=== PATIENT | male | born 1945 | race Caucasian/White ===

== ENCOUNTER 2016-04-11 09:38 | Inpatient (IN) ==
[2016-04-11] MEDS ORDERED: Vancomycin 1,750 MG in D5% in Water 500 ML IVPB ONE (09:55)
[2016-04-11] MEDS ORDERED: Lidocaine 1% 20 ML MDV ID ONE (09:55)
[2016-04-11] MEDS ORDERED: CeFAZolin Pre 2,000 MG/100 ML 2,000 MG/100 ML BAG IVPB ONE (09:55)
--- NOTE | 2016-04-11 09:57 | Anesthesia Evaluation PreOp ---
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: Other (carotid stenosis) Other Medical History: Diabetes Type II Anesthesia History: No Prior Anesthetic Complications, Past Anesthesia ( tympanoplasty) Alcohol Use: none Drug use: none Medications and Allergies Clopidogrel [Plavix] 75 mg PO DAILY #30 tablet 02/17/16 [Rx] Allergies No Known Allergies Allergy (Verified 02/17/16 17:27) - Meds/Allergy Pre-op Review Medications Reviewed: Yes Allergies Reviewed: Yes Beta Blockers on Current Med List: No Anesthesia Results - Labs Laboratory Tests 04/10/16 04/10/16 04/10/16 14:51 14:51 14:51 Hgb 16.1 Hct 49.6 Plt Count 266 PT 11.6 INR 1.1 APTT 32.7 Sodium 141 Potassium 3.9 Creatinine 0.80 - Imaging EKG: pending Anesthesia Exam O2 Sat Height 1.83 m Weight 108.862 kg Height: 1.83 Weight: 108 NPO (# of Hours): >8 - HEENT Pupil (Motor): Pupils equal, EOMI Mallampati: II Teeth: Edentulous Oral Opening: Greater than 3 - SOCIAL SCIENCE INSTRUCTOR LOC: Oriented SOCIAL SCIENCE INSTRUCTOR Motor: Normal RUE, Normal LUE, Normal RLE, Normal LLE, Normal Face SOCIAL SCIENCE INSTRUCTOR Sensory: Normal: RUE, LUE, RLE, LLE, Face - Cardiac Rhythm: Regular Murmur: None - Pulmonary Breath Sounds: bilateral Clear Respiratory Effort: Symmetrical Anesthesia Assess/Plan ASA Score: 3 (p/i/c/r/b/a to include periop risk of CVA or IN at 2-3% over next 72hrs. all q's answered) Modified [place] Scale for Level of Consciousness: Cooperative, oriented, and tranquil Anesthetic Plan: General Monitoring Plan: Standard Monitors Recovery Plan: PACU
[2016-04-11] MEDS ORDERED: Ringers Solution, Lactated 1,000 ML IVC SCH ×2 (10:00→15:15)
[2016-04-11] MEDS ORDERED: Albuterol 2.5 MG/3 ML NEBULIZER ONE (10:01)
[2016-04-11] MEDS ORDERED: Albuterol 2.5 MG/3 ML NEBULIZER IH ONE (10:04)
[2016-04-11] MEDS ORDERED: Heparin 1,000 UNITS/500 mL NS 500 ML ONE (10:17)
--- NOTE | 2016-04-11 10:58 | History & Physical Report ---
Date of Encounter: 04/11/16 Time of Encounter: 10:55 24 Hour HP Update - Instructions Instructions: If the History and Physical is less than 30 days old and was completed prior to A.M. admission and or procedure and has NOT been updated on calendar day of procedure please complete this update prior to performing procedure. - Update Patient reports changes in Medical Condition: No Changes in assessment/condition: No Changes in Medication: No Preop tests/diagnostics Reviewed: Yes Surgery Remains Indicated: Yes Consent for Planned Operative Procedure(s) Verified: Yes - Pre-Operative Checklist Preoperative Checklist Indicated: No Prophylactic Antibiotic Ordered: Yes (Surgical prophylaxis with risk of MRSA) Home Medications Include Beta Santino: No Beta Santino Taken Today (Day of Surgery): No Beta Santino Taken Yesterday (Day Prior to Surgery): No Is VTE Prophylaxis Indicated?: Yes
[2016-04-11] MEDS ORDERED: Vancomycin 1,000 MG VIAL ONE (11:07)
[2016-04-11] MEDS ORDERED: Protamine Sulfate 50 MG/5 ML VIAL IVP ONE (11:07)
[2016-04-11] MEDS ORDERED: Bupivacaine-MPF 0.25% 10 ML VIAL ONE (11:07)
[2016-04-11] MEDS ORDERED: Heparin 1,000 UNITS/500 mL NS 1,000 ML ONE (11:08)
[2016-04-11] MEDS ORDERED: *HR* Rocuronium Bromide 50 MG/5 ML VIAL ONE (11:09)
[2016-04-11] MEDS ORDERED: Lidocaine -MPF 2% 2 ML VIAL ONE (11:09)
[2016-04-11] MEDS ORDERED: Ondansetron 4 MG/2 ML VIAL ONE (11:09)
[2016-04-11] MEDS ORDERED: Dexamethasone 4 MG/ML VIAL ONE (11:09)
[2016-04-11] MEDS ORDERED: *HR* Phenylephrine 10 MG/ML VIAL ONE (11:09)
[2016-04-11] MEDS ORDERED: *HR* Propofol 200 MG/20 ML VIAL IVP ONE (11:10)
[2016-04-11] MEDS ORDERED: *HR* Heparin 5,000 UNIT/ML VIAL ONE (11:10)
[2016-04-11] MEDS ORDERED: *HR* FentaNYL (PF) 100 MCG/2 ML VIAL ONE (11:18)
[2016-04-11] MEDS ORDERED: *HR* Midazolam HCl 2 MG/2 ML VIAL ONE (11:18)
[2016-04-11] MEDS ORDERED: *HR* Remifentanil 2 MG VIAL IVP ONE ×2 (11:18→13:36)
[2016-04-11] MEDS ORDERED: *HR* HYDROmorphone 2 MG/ML SYRINGE ONE (14:19)
[2016-04-11] MEDS ORDERED: *HR* Succinylcholine 200 MG/10 ML VIAL IVP ONE (14:47)
[2016-04-11] MEDS ORDERED: *HR* Metoprolol 5 MG/5 ML VIAL IVP ONE (14:53)
--- NOTE | 2016-04-11 14:55 | Operative Note ---
Date of procedure: 04/11/16 Pre-op diagnosis: 80-99% Right internal carotid artery stenosis Post-op diagnosis: same Procedure: Right carotid endarterectomy with hemashield patch angioplasty. Complications: None Anesthesia: SUZIA Surgeon: Mian Torrez Estimated blood loss (cc): 100 Specimen: Right carotid plaque Condition: stable Disposition: PACU Procedure in Detail: Indications: The patient is a 70 year old male who underwent a CT angiogram of the neck and was found to have an 80-99% proximal right internal carotid artery stenosis. A right carotid endarterectomy was recommended to reduce his risk of stroke. Procedure: The patient was identified in the preoperative area. The risks, benefits, and alternatives of the procedure were discussed and all questions were answered. The patient was then taken to the operating room and placed in supine position on the operating table. After induction of general endotracheal anesthesia, the patient was cleaned and draped in normal sterile fashion. A longitudinal incision was made anterior to the right sternocleidomastoid muscle. Hemostasis was obtained via electrocautery. Through a process of blunt , sharp, and electrocautery dissection, the platysma was traversed. The jugular vein was identified. The facial vein circumferentially dissection. The facial vein was then clamped, divided, tied off with a 2-0 silk suture ligature. The jugular vein was retracted, exposing the carotid bifurcation. The patient received 2000 units of heparin intravenously at this time. Proximal dissection of the common and external carotid arteries were performed circumferentially. Dissection of the internal carotid was performed circumferentially. Vessels loops were passed around the internal and external carotid and an umbilical tape was passed from the common carotid artery. The patient received additional 3000 units of heparin intravenously. Additional heparin was given throughout the case to maintain adequate anticoagulation. After waiting adequate time for it to circulate, the vessels were occluded and a longitudinal arteriotomy was made into the common carotid artery extending into the internal carotid beyond the plaque. Vigorous pulsatile retrograde flow was noted from the internal carotid artery upon release of the loop. Given the high backpressure, no shunt was placed. A dental Mystic was used to perform a standard endarterectomy. Proximal and distal endpoints were inspected. No elevated flaps were noted. Additional heparin was given throughout the procedure to maintain adequate anticoagulation. A Hemashield patch was cut to fit the defect and sutured in place with running 6 -0 Prolene. Prior to completing the closure, each vessel was flushed and then reoccluded. Heparinized saline was infused into the lumen. The patch was completed. Flow was restored in the external carotid artery, followed the common carotid artery, lastly the internal carotid artery was opened. A low resistance arterialized signal was present within the internal carotid artery beyond the patch. Thrombin and Gelfoam were used to aid in hemostasis. Meticulous hemostasis was obtained throughout the wound with electrocautery. Platelet rich and platelet poor plasma were infused into the wounds. The sternocleidomastoid was reapproximated with interrupted 3-0 Vicryl. Platelet rich and platelet poor plasma were infused into the wound. A TLS drain was brought through a separate stab incision and sutured in place with 0 silk suture. The platysma was reapproximated with running 3-0 Vicryl. Local anesthetic was infused in the skin. A 3-0 Monocryl was used to reapproximate the skin. Sterile dressing was applied. The patient was extubated, taken to the recovery room in stable condition.
[2016-04-11] MEDS ORDERED: Ondansetron 4 MG/2 ML VIAL IVP ONE (15:15)
[2016-04-11] MEDS ORDERED: *HR* HYDROmorphone (PF) 1 MG/ML SYRINGE IVP PRN (15:15)
--- NOTE | 2016-04-11 15:37 | Anesthesia Evaluation Post Op ---
Date of Encounter: 04/11/16 Time of Encounter: 15:34 - Vital Signs Vital Signs: Vital Signs/O2 Sat/Glucose, Most Current Temp Pulse Resp BP Pulse Ox 04/11/16 15:14 73 20 139/73 96 04/11/16 15:04 98.7 F 77 20 171/85 90 L - Lungs Lungs: Clear Ascult./Percussion - Airway Airway: Non-obstructed - Cardiovascular Regular Rate, Baseline Rhythm - Mental Status Mental Status: Alert & Oriented, Answers Appropriately - Pain Pain Scale: 0 Pain Scale used: Numeric (1 - 10) - Nausea Vomiting Nausea Vomiting: Not Present - Hydration Hydration: Ice chips, Cooney catheter - Discharge PostOp Status: Transfer Patient to floor
[2016-04-11] MEDS ORDERED: Naloxone 0.4 MG/ML INJ IVP PRN (16:44)
[2016-04-11] MEDS ORDERED: *HR* Dextrose 50 % in Water (Syg) 50 ML SYRINGE IVP PRN (16:44)
[2016-04-11] MEDS ORDERED: Dextrose Gel 15 GM PO PRN ×2 (16:44)
[2016-04-11] MEDS ORDERED: Ondansetron 4 MG/2 ML VIAL IVP PRN (16:44)
[2016-04-11] MEDS ORDERED: *HR* OxyCODONE Immed Rel 5 MG TABLET PO PRN (16:44)
[2016-04-11] MEDS ORDERED: D5% in Water 1,000 ML IV PRN (16:44)
[2016-04-11] MEDS ORDERED: *HR* Morphine 2 MG/ML SYRINGE IVP PRN (16:44)
[2016-04-11] MEDS ORDERED: Acetaminophen 325 MG TABLET PO PRN (16:44)
[2016-04-11] MEDS ORDERED: *HR* Labetalol 20 MG/4 ML SYRINGE IVP PRN (16:44)
[2016-04-11] MEDS: Insulin LISPRO 300 UNITS/3 ML VIAL SQ SCH (17:38)
[2016-04-11] MEDS: *HR* Metoprolol 5 MG/5 ML VIAL IVP SCH (17:49)
[2016-04-11] MEDS: ceFAZolin 2,000 MG in D5% in Water 100 ML IVPB SCH (17:49)
[2016-04-11] MEDS ORDERED: Lisinopril 20 MG TABLET PO SCH (18:00)
[2016-04-11] MEDS ORDERED: hydroCHLOROthiazide 25 MG TABLET PO SCH (18:00)
[2016-04-11] MEDS ORDERED: Magnesium Oxide 400 MG TABLET PO SCH (18:00)
[2016-04-11] MEDS ORDERED: Aspirin Enteric Coated 81 MG Tablet PO SCH (18:00)
--- NOTE | 2016-04-11 20:36 | Electrocardiograph Report ---
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
[2016-04-11] MEDS ORDERED: Insulin LISPRO 300 UNITS/3 ML VIAL SQ SCH (21:00)
[2016-04-11] MEDS ORDERED: Vancomycin 1,500 MG in D5% in Water 250 ML IVPB ONE (22:30)
[2016-04-12] MEDS: *HR* Metoprolol 5 MG/5 ML VIAL IVP SCH ×3 (00:48→12:13)
[2016-04-12] MEDS: ceFAZolin 2,000 MG in D5% in Water 100 ML IVPB SCH (01:20)
[2016-04-12] MEDS ORDERED: *HR* Heparin 5,000 UNIT/ML VIAL SQ SCH ×2 (06:00)
--- NOTE | 2016-04-12 07:35 | Anesthesia Procedures ---
Date of Encounter: 04/11/16 Time of Encounter: 12:00 Procedures: Anesthesia - Arterial Line Consent obtained: written consent Time out performed: Yes Sedation: Versed (mg): 2 Sedation: Fentanyl (mcg): 100 Supplemental Oxygen via Nasal Cannula (L/min): 2 Size (Gauge): 20 Length (inches): 1 3/4 Technique Used: sterile prep, guide wire technique, direct puncture technique Post-Procedure: line taped into place Patient tolerated procedure: well Complications: none Site: Radial R
--- NOTE | 2016-04-12 07:41 | Discharge Summary ---
Date of Encounter: 04/12/16 Time of Encounter: 07:45 - Discharge Diagnosis (1) Carotid stenosis, bilateral Priority: Primary Status: Chronic Comments: The patient is postoperative day #1 after right carotid endarterectomy. His wound is healing. He has no hematoma. He will be discharged today. 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 He qualifies for home 02. This will be provided to him. He was reminded to quit smoking and urged to not smoke while on oxygen supplementation due to fire risk. Qualifiers: COPD type: emphysema Emphysema type: panlobular Qualified Code(s): J43.1 - Panlobular emphysema (3) Type 2 diabetes mellitus with other circulatory complications Priority: Secondary Status: Chronic (4) Hypertension, essential Priority: Secondary Status: Chronic Comments: The patient was counseled regarding smoking cessation. (5) Mixed hyperlipidemia Priority: Secondary Status: Chronic (6) Hematuria Priority: Secondary Status: Chronic Comments: The patient has been experieincing hematuria. I spoke with Dr. Lott. He advised that the tuttle catheter should be left in place. The patient will follow -up with Dr. Lott in the office next week. He will receive teaching regarding tuttle catheter management prior to discharge. (7) Tobacco abuse Priority: Secondary Status: Chronic Comments: The patient was counseled regarding smoking cessation. He states that he is officially quitting. - Discharge Medications Prescriptions: OxyCODONE Immed Rel [Roxicodone 5 MG] 1 tab PO Q4H PRN #30 tablet PRN Reason: POSTOPERATIVE PAIN Oxybutynin [Ditropan] 5 mg PO TID #30 tablet Home Medications: Amlodipine Besylate 10 mg PO QPM 04/11/16 [History] Aspirin Enteric Coated [Aspirin EC] 81 mg PO QPM 04/11/16 [History] Clopidogrel [Plavix] 75 mg PO QPM 04/11/16 [History] GlipiZIDE [Glipizide] 20 mg PO BID 04/11/16 [History] Hydrochlorothiazide 25 mg PO QPM 04/11/16 [History] Lisinopril [Zestril] 40 mg PO QPM 04/11/16 [History] Magnesium Oxide [Magnesium] 400 mg PO QPM 04/11/16 [History] Metformin HCl [Glucophage] 1,000 mg PO BID 04/11/16 [History] Simvastatin [Zocor] 10 mg PO HS 04/11/16 [History] OxyCODONE Immed Rel [Roxicodone 5 MG] 1 tab PO Q4H PRN #30 tablet 04/12/16 [Rx] Oxybutynin [Ditropan] 5 mg PO TID #30 tablet 04/12/16 [Rx] Albuterol Sulfate [Albuterol Inhaler] 1 puff IH Q4HR PRN #1 pack 04/15/16 [Rx] GuaiFENesin ER [Mucinex] 600 mg PO BID #20 tbbp.12hr 04/15/16 [Rx] Ipratropium/Albuterol Neb [Duoneb] 3 ml IH [id number] #30 inhsol 04/15/16 [Rx] Levofloxacin [Levaquin] 750 mg PO DAILY #5 tablet 04/15/16 [Rx] Allergies/Adverse Reactions: Allergies No Known Allergies Allergy (Verified 04/11/16 10:34) Procedures/tests Complete & Pending: Procedures Performed prior 72 hours Category Date Time Status ECG 12 lead ECG [ECG] Stat Y 04/11/16 09:58 Completed Date of admission: 04/11/16 15:24 Primary care physician: PCP VT Procedure(s) Performed: Right carotid endarterectomy Discharging clinician: Mian Torrez Anticipated date of discharge: 04/12/16 - Patient Status Disposition: Home, Self-Care Condition: Good Functional capacity at discharge: independent ambulation Overall status at discharge: patient is progressing back to baseline - Discharge Instructions Instructions: Oxycodone, Rapid Release (By mouth), Diabetes Mellitus Type 2 in Adults (DC), Peripheral Vascular Disorders (DC), Chronic Obstructive Pulmonary Disease (DC), Chronic Hypertension (DC) Follow Up With: Mian Torrez MD [Partnered Physician] - 05/22/16 9:40 am Hamzah Lott MD [Partnered Physician] - 04/18/16 1:00 pm VT,PCP [Primary Care Provider] - 04/25/16 9:15 am Additional Instructions: May shower 04/13/16. Wash wound gently and pat to dry. Apply dry gauze bandage as needed. Call [phone] with questions or concerns. - Diet and Activity Activity: increase activity as tolerated Diet: diabetic diet - Hospital Course Hospital course: Mr. Greene is a 70 year old male with a history of carotid stenosis. He was admitted on 04/11/16. He underwent a right carotid ednarterectomy. He tolerated the procedure well. He was noted to have hematuria and urology recommended that he be discharged with his tuttle catheter. He was instructed regarding catheter management. Due to bladder spasms, he was started on Oxybuynin. He was discharged on postoperative day #1 in stable condition without complication. - Time Spent with Patient Total time spent providing and/or coordinating discharge services: Exam Vital Signs, Last 4 Hours Temp Pulse Resp BP Pulse Ox 04/12/16 07:15 98.6 F 64 14 138/70 90 L 04/12/16 04:42 69 04/12/16 03:56 98.6 F 69 18 131/62 93 L General: Present: Conversant, No Apparent Distress HEENT: Present: Trachea midline, Pupils equal Neck: Present: Other (incision clean, dry and intact without erythema or drainage, no hematoma) Cardiac: Present: Reg Rate and Rhythm Lungs: Present: Normal Breath Sounds, No Wheeze, Rales, Rhonchi Neuro: Present: Alert and responsive, No focal deficits noted Abdomen: Present: Non-tender Vascular: Present: Normal capillary refill. Absent: Cyanosis, Edema Skin: Present: No rashes noted on visualized skin - VTE Documentation of Mechanical Device: Graduated compression elastic hosiery
[2016-04-12] MEDS: *HR* HYDROcodone/Acet 5/325 mg TABLET PO PRN ×2 (08:03→15:48)
[2016-04-12] MEDS: Insulin LISPRO 300 UNITS/3 ML VIAL SQ SCH ×2 (08:08→12:14)
[2016-04-12] MEDS ORDERED: *HR* GlipiZIDE 5 MG TABLET PO SCH (09:00)
[2016-04-12] MEDS ORDERED: *HR* Metformin 500 MG TABLET PO SCH (09:00)
[2016-04-12 15:27] VITALS: BP 190/81
[2016-04-12] MEDS ORDERED: amLODIPine 5 MG TABLET PO SCH (18:00)
== END 2016-04-12 16:25 | disposition home or self-care (01) | DRG 39 ==
LOC: SAMDAY 09:38 → 2NNU 15:24
PROVIDERS: ADMIT Surgery; ATTEND Surgery

== ENCOUNTER 2016-04-13 14:23 | Inpatient (IN) ==
[2016-04-13] MEDS ORDERED: Ondansetron 4 MG/2 ML VIAL IVP PRN (16:41)
[2016-04-13] MEDS ORDERED: Acetaminophen 325 MG TABLET PO PRN (16:41)
[2016-04-13] MEDS ORDERED: Naloxone 0.4 MG/ML INJ IVP PRN (16:41)
[2016-04-13] MEDS ORDERED: *HR* OxyCODONE Immed Rel 5 MG TABLET PO PRN ×2 (16:49→18:45)
[2016-04-13] MEDS ORDERED: *HR* Dextrose 50 % in Water (Syg) 50 ML SYRINGE IVP PRN (17:53)
[2016-04-13] MEDS ORDERED: D5% in Water 1,000 ML IV PRN (17:53)
[2016-04-13] MEDS ORDERED: Dextrose Gel 15 GM PO PRN ×2 (17:53)
[2016-04-13] MEDS: Aspirin Enteric Coated 81 MG Tablet PO SCH (17:56)
[2016-04-13] MEDS: Magnesium Oxide 400 MG TABLET PO SCH (17:57)
[2016-04-13] MEDS: amLODIPine 5 MG TABLET PO SCH (17:57)
[2016-04-13] MEDS ORDERED: hydroCHLOROthiazide 25 MG TABLET PO SCH (18:00)
--- NOTE | 2016-04-13 18:02 | Internal Med History&Physical ---
Date of Encounter: 04/13/16 Time of Encounter: 17:00 Assessment and Plan (1) Acute encephalopathy Current visit: Yes Status: Acute secondary to use of Percocet, Xanax and hypoxemia. Holding pain medications and sedatives. Treating underlying hypoxemia. (2) Medication overdose Current visit: Yes Status: Acute patient tool xanax and oxycodone due to pain from tuttle catheter and developed drowsiness and imbalance. holding pain meds. tylenol prn. Qualifiers: Encounter type: initial encounter Injury intent: accidental or unintentional Qualified Code(s): T50.901A - Poisoning by unspecified drugs, medicaments and biological substances, accidental (unintentional), initial encounter (3) Acute respiratory failure with hypoxemia Current visit: Yes Status: Acute Patient was started on 2 L of oxygen at home yesterday. history of COPD and emphysema. His describes episodes of shortness of breath at exertion and hypoxia with SaO2 at 86% for many years. Also, he has been dozing off more frequently in the past few months. Positive flulike symptoms one week ago. Patient denies any cough, hemoptysis, or chest pain. Requiring 8 L of oxygen via high flow nasal cannula. could be secondary to COPD exacerbation. Given concern for possible pneumonia, I will start IV Levaquin, and IV vancomycin. Blood cultures taken at [facility] ED. check CXR, ABG, EKG, echocardiogram. Albuterol Atrovent nebulizations every 4 hours mucinex. (4) UTI (urinary tract infection) Current visit: Yes Status: Acute had a tuttle catheter placed 2 days ago. This was removed at [facility] ED. Has had already 1100 mL of clear urine without a tuttle catheter. UA was positive for infection. Pending urine culture from [facility] daily. Patient received IV ceftriaxone. repeat UA. Qualifiers: Urinary tract infection type: acute cystitis Hematuria presence: with hematuria Qualified Code(s): N30.01 - Acute cystitis with hematuria (5) COPD (chronic obstructive pulmonary disease) Current visit: No Status: Chronic plan as above Qualifiers: COPD type: emphysema Emphysema type: panlobular Qualified Code(s): J43.1 - Panlobular emphysema (6) Carotid stenosis, bilateral Current visit: No Status: Chronic s/p bilateral CEA. (7) Type 2 diabetes mellitus with other circulatory complications Current visit: No Status: Chronic ISS. diabetic diet. IV fluids (8) Tobacco abuse Current visit: No Status: Chronic (9) Hypertension, essential Current visit: No Status: Chronic resume amlodipine. iv hydralazine prn. (10) Hematuria Current visit: No Status: Chronic resolved. repeat UA. Internal Medicine - H&P: HPI Chief complaint: changes in mental status this morning. Admitted From: Home Plans for Post Hospital Care: Home History of present illness: Mr. Greene is a 70 year old male with past medical history of diabetes, hypertension, COPD, CAD and recent right carotid endarterectomy on 04/11/16 at our hospital. His postoperative course was complicated by hematuria and he was sent home with a Tuttle catheter. This morning, patient woke up at 7:30, was complaining of discomfort from his Tuttle catheter so he took 5 mg of oxycodone. His discomfort persisted and a family member gave him 2mg of Xanax (patient has no prescription for this). At 7:50 AM family noted the patient was acting differently, he was mumbling his words and was in bilateral arms. At the [facility] ED, patient required 6L of oxygen via NC. Urinalysis was positive for nitrates, hemoglobin, uric acid esterase and bacteria. Urine culture is pending. WBC 11. Hemoglobin 15.5. Platelets 226. Sodium 136. Potassium 4.4. chloride 96. BUN/creatinine 27. Glucose 218. Creatinine 0.88. LFTs were unremarkable except albumin 3.4. PT 13.7 INR 1.23 PTT 32.1 sedimentation rate 26. Troponin 0.22. CT of the head showed moderate chronic paranasal sinusitis. Mild to moderate arteriovascular calcification. Blood cultures are taken. He received 1 g of IV ceftriaxone and 500 mL of IV normal saline for up suspected UTI. He was transferred to our hospital for further management. On admission, patient is requiring 8 L of oxygen via high flow nasal cannula. He is alert and oriented 3. Has had already 1100 mL of clear urine without a tuttle catheter. Yesterday, patient was started on 2 L of oxygen via nasal cannula for the first time. However, his describes episodes of shortness of breath at exertion and hypoxia with SaO2 at 86% for many years. Also, he has been dozing off more frequently in the past few months. Positive flulike symptoms one week ago. Patient denies any cough, hemoptysis, or chest pain. Past Med Surg Social Fam HX - Past Medical History Medical history: CHF, COPD, diabetes, hyperlipidemia, hypertension, other Psychiatric history: anxiety, depression - Past Surgical History Surgical History: vascular surgery - Social History Smoking Status: Current every day smoker Packs per day: 1 1/2 Smokeless Tobacco Status: No Alcohol use: occasionally Drug use: prescription drug abuse - Family History Father History Unknown: Yes Internal Medicine - H&P: Meds Amlodipine Besylate 10 mg PO QPM 04/11/16 [History] Aspirin Enteric Coated [Aspirin EC] 81 mg PO QPM 04/11/16 [History] Clopidogrel [Plavix] 75 mg PO QPM 04/11/16 [History] GlipiZIDE [Glipizide] 20 mg PO BID 04/11/16 [History] Hydrochlorothiazide 25 mg PO QPM 04/11/16 [History] Lisinopril [Zestril] 40 mg PO QPM 04/11/16 [History] Magnesium Oxide [Magnesium] 400 mg PO QPM 04/11/16 [History] Metformin HCl [Glucophage] 1,000 mg PO BID 04/11/16 [History] Simvastatin [Zocor] 10 mg PO HS 04/11/16 [History] OxyCODONE Immed Rel [Roxicodone 5 MG] 1 tab PO Q4H PRN #30 tablet 04/12/16 [Rx] Oxybutynin [Ditropan] 5 mg PO TID #30 tablet 04/12/16 [Rx] Allergies No Known Allergies Allergy (Verified 04/11/16 10:34) All Systems PM: A 10-system review of systems was performed and is negative for pertinent findings except as documented above in the HPI. - Constitutional Vitals: Temp Pulse Resp BP Pulse Ox 98.6 F 85 18 176/79 90 L 04/13/16 16:41 04/13/16 16:41 04/13/16 16:41 04/13/16 16:41 04/13/16 16:41 General appearance: Present: cooperative, mild distress (respiratory distres), A &O X 3, pleasant, answers questions appropriately - Eye Eye exam: Present: PERRL, sclera anicteric - ENT ENT exam: Present: mucous membranes dry - Neck Additional comments: surgical incision without any signs of infection - Respiratory Respiratory exam: Present: decreased breath sounds (at left lung base. mild wheezes at base) - Cardiovascular Cardiovascular exam: Present: RRR - GI/Abdominal GI/Abdominal exam: Present: normal bowel sounds, soft. Absent: distended, tenderness - Extremities Exam Extremities exam: Present: pedal edema (ankle) - Back Exam Back exam: Absent: CVA tenderness (L), CVA tenderness (R) - Neurological Exam Neurological exam: Present: alert, oriented X3. Absent: facial droop, speech deficit
--- NOTE | 2016-04-13 18:16 | Event Note ---
Date of Encounter: 04/13/16 Time of Encounter: 16:30 Patient seen and examined and discussed with the hospitalist. The patient underwent a right carottid endarterectomy on 04/11/16. He has hematuria and due to this, his tuttle was left in place. He was advised to follow-up with Dr. Lott next week. However, the patient reports that he was unable to tolerate his tuttle catheter. His states that he was also not drinking fluids because he didn't want to get a full bladder. The patient apparently also took sedatives and narcotics and became somnolent. He was taken to the ER and insisted that his catheter be removed. It was removed and he was then transferred to [facility]. Exam reveals that his incision is healing well. He has no hematoma. He has no neurologic deficits. He is able to urinate without the tuttle catheter in place. His urine is clear. Recommend resuming his diet, oral versus intravenous hydration.
[2016-04-13] MEDS ORDERED: Vancomycin 0 MG in D5% in Water 250 ML IVPB STA (18:34)
[2016-04-13] MEDS: Ipratropium/Albuterol Neb 3 ML IH SCH ×3 (18:42→23:00)
[2016-04-13] MEDS: Budesonide Neb 0.5 MG/2 ML IH SCH ×2 (18:42→19:56)
[2016-04-13] MEDS ORDERED: 0.9 % Sodium Chloride 1,000 ML IVC SCH (18:45)
[2016-04-13] MEDS ORDERED: Albuterol 2.5 MG/3 ML NEBULIZER IH PRN (18:45)
[2016-04-13 18:58] LABS: ABG Base Excess 8.4 mEq/L (-2.0 to 3.0); ABG HCO3 36.7 mEQ/L (21-27); ABG Oxygen Saturation 91 % (95-98); ABG PCO2 65 mmHg (35-45); ABG PH 7.36 pH Units (7.32-7.45); ABG PO2 64 mmHg (85-104); ABG TCO2 38.7 mEq/L (20-26); Blood Gas Liter Flow 8 L/MIN
[2016-04-13] MEDS ORDERED: Levofloxacin 500 MG/100 ML 500 MG/100 ML BAG IVPB SCH (19:00)
[2016-04-13 19:47] LABS: Magnesium 1.6 mg/dL (1.6-2.6); Phosphorous 2.4 mg/dL (2.3-4.7)
[2016-04-13] MEDS: Insulin LISPRO 300 UNITS/3 ML VIAL SQ SCH (19:50)
[2016-04-13 20:02] LABS: Bilirubin,Urine Negative (Negative); Blood,Urine Large (Negative); Clarity,Urine Clear (Clear); Color,Urine Yellow (Yellow); Glucose,Urine (UA) 100 mg/dL (Normal); Ketones,Urine Negative (Negative); Leukocyte Esterase,Urine Negative (Negative); Nitrite,Urine Negative (Negative); Protein,Urine 30 mg/dL (Neg-Trace); Specific Gravity,Urine >= 1.030 (1.010-1.025); Urobilinogen,Urine Normal (Normal)
[2016-04-13 20:04] LABS: Bacteria,Urine None Seen per hpf (None-Few); Hyaline Casts,Urine None Seen per lpf (None-Few); RBC,Urine 0-3 per hpf (0-3); Squamous Epithelial Cell,Urine Moderate per lpf (None-Few); WBC,Urine 0-3 per hpf (0-3)
[2016-04-13] MEDS: Vancomycin 1,500 MG in D5% in Water 250 ML IVPB SCH (21:44)
[2016-04-14] MEDS: Ipratropium/Albuterol Neb 3 ML IH SCH ×6 (03:31→23:44)
[2016-04-14 04:21] LABS: BUN/Creatinine Ratio 22 (6-26); Blood Urea Nitrogen 17 mg/dL (8-26); Calcium 8.9 mg/dL (8.6-10.8); Carbon Dioxide 33 mEq/L (19-29); Chloride 93 mEq/L (98-109); Glucose 153 mg/dL (70-99); Magnesium 1.3 mg/dL (1.6-2.6); Osmolality,Calculated 285 (280-300); Phosphorous 2.3 mg/dL (2.3-4.7); Potassium 4.1 mEq/L (3.5-4.5); Sodium 135 mEq/L (136-145); eGFR For African Americans > 60 (> 60); eGFR For Non-African Americans > 60 (> 60)
[2016-04-14 04:32] LABS: Basophils % 0.4 %; Eosinophils # 0.1 K/mcL (0.0-0.6); Eosinophils % 0.8 %; Hematocrit 44.7 % (37.5-50.1); Hemoglobin 14.7 g/dL (12.9-16.9); Immature Granulocytes % 0.5 % (0-4); Lymphocytes # 1.1 K/mcL (0.6-4.6); Mean Corpuscular HGB Conc 32.9 g/dL (31.6-35.5); Mean Corpuscular Hemoglobin 28.9 pg (28.0-33.3); Mean Corpuscular Volume 87.8 fL (83.0-100.0); Mean Platelet Volume 9.8 fL (9.4-12.4); Monocytes # 1.2 K/mcL (0.0-1.3); Monocytes % 11.3 %; Neutrophils # 8.1 K/mcL (1.6-8.9); Platelet Count 225 K/mcL (140-400); Red Blood Count 5.09 M/mcL (4.19-5.50); Red Cell Distribution Width 13.9 % (11.5-14.5)
[2016-04-14] MEDS: Budesonide Neb 0.5 MG/2 ML IH SCH ×2 (07:23→20:40)
[2016-04-14] MEDS: Insulin LISPRO 300 UNITS/3 ML VIAL SQ SCH ×4 (07:59→19:20)
[2016-04-14] MEDS: Vancomycin 1,500 MG in D5% in Water 250 ML IVPB SCH (08:03)
--- NOTE | 2016-04-14 16:49 | Internal Med Progress Note ---
Date of Encounter: 04/14/16 Time of Encounter: 09:00 - Assessment and plan (1) COPD exacerbation Current Visit: Yes Status: Acute Assessment and plan: We will continue antibiotics, steroids, and bronchodilator treatment. Supportive treatment with oxygen or BiPAP. (2) DVT prophylaxis Current Visit: Yes Status: Acute Assessment and plan: Heparin subcutaneously (3) Acute respiratory failure with hypoxemia Current Visit: Yes Status: Acute Assessment and plan: Considered due to COPD exacerbation, will treat underlying disease, oxygen or BiPAP supportive treatment (4) Carotid stenosis, bilateral Current Visit: No Status: Chronic Assessment and plan: Had the right side carotid endarterectomy. On Aspirin and Plavix (5) Hypertension, essential Current Visit: No Status: Chronic Assessment and plan: Keep home medication (6) Type 2 diabetes mellitus with other circulatory complications Current Visit: No Status: Chronic Assessment and plan: Sliding-scale coverage (7) Elevated troponin Current Visit: Yes Status: Acute Assessment and plan: Mild elevation of troponin on COPD exacerbation setting, considered demand ischemia, repeated troponin trended down. Patient has no chest pain and there is no significant EKG change - Time Spent With Patient 25 - 35 minutes - Subjective Interval history: Patient is a 70-year-old male admitted for shortness of breath. His past medical history is significant for COPD, CAD, and a recent right carotid endarterectomy. Pt was seen and examined. He is awake alert, oriented 3. In mild respiratory distress. Talking in full sentences. Vitals are stable. Oxygen saturation 95 % on 6 L nasal cannula oxygen. Considering patient has COPD, we will decrease his nasal cannula oxygen level to 3.5 L/m, if oxygen saturation cannot maintain , will place patient on BiPAP. Continue antibiotic, steroid, and bronchodilator treatment. - Constitutional Vitals: Temp Pulse Resp BP Pulse Ox 98.9 F 78 18 166/72 94 L 04/14/16 16:18 04/14/16 16:18 04/14/16 16:18 04/14/16 16:18 04/14/16 16:18 General appearance: Present: cooperative, mild distress (respiratory distres), A &O X 3, pleasant, answers questions appropriately - Head Head exam: Present: atraumatic, normocephalic - Eye Eye exam: Present: PERRL, conjuntiva pink, sclera anicteric Pupils: Present: PERRL - Neck Neck exam general surgery: Present: supple, trachea midline. Absent: lymphadenopathy - Respiratory Respiratory exam: Present: CTAB, wheezes (Scattered wheezes bilaterally). Absent: accessory muscle use, rales, rhonchi - Cardiovascular Cardiovascular exam: Present: RRR, +S1, +S2. Absent: diastolic murmur, gallop, rubs, systolic murmur - GI/Abdominal GI/Abdominal exam: Present: normal bowel sounds, soft, no peritoneal signs. Absent: distended, tenderness - Extremities Exam Extremities exam: Present: warm, radial pulses palpable and symetrical. Absent : calf tenderness, cyanotic, pedal edema - Neurological Exam Neurological exam: Present: CN II-XII intact, oriented X3, no focal deficits. Absent: pronater drift, facial droop, speech deficit - Skin Skin exam: Present: dry, intact Internal Medicine: Result - Labs CBC & Chem 7: 04/14/16 03:45 04/14/16 03:45 Labs: Short CBC 04/14/16 Range/Units 03:45 WBC 10.6 (4.3-11.1) K/mcL Hgb 14.7 (12.9-16.9) g/dL Hct 44.7 (37.5-50.1) % Plt Count 225 (140-400) K/mcL Neutrophils # 8.1 (1.6-8.9) K/mcL BMP 04/14/16 03:45 Sodium 135 L Potassium 4.1 Chloride 93 L Carbon Dioxide 33 H BUN 17 Creatinine 0.76 Glucose 153 H Calcium 8.9 Cardiac Enzymes 04/13/16 04/14/16 Range/Units 19:28 03:45 Troponin I 0.12 H* 0.11 H* (0-0.03) ng/mL Urine 04/13/16 Range/Units 19:30 Urine Color Yellow (Yellow) Urine Clarity Clear (Clear) Urine pH 6.0 (5.0-8.0) pH Units Ur Specific [place] >= 1.030 H (1.010-1.025) Urine Protein 30 H (Neg-Trace) mg/dL Urine Glucose (UA) 100 H (Normal) mg/dL - ABG Interpretation ABG results: ABG ABG pH 7.36 pH Units (7.32-7.45) 04/13/16 18:48 ABG pCO2 65 mmHg (35-45) H 04/13/16 18:48 ABG pO2 64 mmHg (85-104) L 04/13/16 18:48 ABG O2 Saturation 91 % (95-98) L 04/13/16 18:48 - Impressions Impressions Chest X-Ray 04/13/16 18:19 IMPRESSION: Diffuse interstitial airspace opacities are present, with the differential including pulmonary edema and atypical infection, or less likely etiologies such as diffuse alveolar hemorrhage. D/ / Jacinto Mcghee MD / Jacinto Mcghee MD Interpreting Provider: Jacinto Mcghee MD Chest CT 04/13/16 19:44 IMPRESSION: No acute focal pneumonia. Scattered areas of atelectasis predominantly in the lower lobes. Fluid-filled esophagus noted incidentally. D/ / Roshan Head MD / Roshan Head MD Interpreting Provider: Roshan Head MD Consult Discharge Plan - Plan Referrals: Mian Torrez MD [Partnered Physician] - 05/22/16 9:40 am Hamzah Lott MD [Partnered Physician] - 04/18/16 1:00 pm [place],PCP [Primary Care Provider] - 04/25/16 9:15 am
--- NOTE | 2016-04-14 17:27 | Electrocardiograph Report ---
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
[2016-04-14] MEDS: *HR* Heparin 5,000 UNIT/ML VIAL SQ SCH (17:46)
[2016-04-14] MEDS: Magnesium Oxide 400 MG TABLET PO SCH (17:47)
[2016-04-14] MEDS: amLODIPine 5 MG TABLET PO SCH (17:47)
[2016-04-14] MEDS: Aspirin Enteric Coated 81 MG Tablet PO SCH (17:47)
[2016-04-14] MEDS ORDERED: Levofloxacin 750 MG/150 ML 750 MG/150 ML BAG IVPB SCH (18:00)
--- NOTE | 2016-04-14 19:06 | ECHO - Doppler Report ---
Echocardiogram Name: Wolfgang Greene Date of Study: 04/14/2016 Date: 1945 Ht: 74.0 in Medical Record#: [id number] Age: 70 Wt: 217.0 lb Gender: Male BSA: 2.25 Order #: [id number] Location: [facility] Room #: 2N01 Reading Physician: Ronnie Fuentes DO, JACKSON, KEITH HYDE Internal Communications Manager: Meenu Rodriguez RVT Ordering Physician: Jessa Claudio MD Primary Physician: [facility] Indications: Hypoxia, History of CHF Impressions: LVEF 60-65%. Normal LV chamber size and function. Mild concentric left ventricular hypertrophy. Mild left ventricular diastolic dysfunction. Atypical septal motion consistent with bundle branch block. Normal right ventricular structure and function. Mild pulmonary hypertension. Estimated RVSP is 39 mmHg. No significant valvular dysfunction. Left Ventricular Wall Motion: Rest Echo Findings All wall segments showed normal motion. Findings: Study Quality * Technically sub-optimal due to poor echocardiographic windows. ECG Findings * Sinus rhythm with BBB. Left Ventricle * LVEF 60-65%. * Normal LV chamber size, wall thickness and function. * Mild concentric left ventricular hypertrophy. * Mild left ventricular diastolic dysfunction. * Atypical septal motion consistent with bundle branch block. Right Ventricle * Normal right ventricular structure and function. Left Atrium * Mildly dilated left atrium. Right Atrium * Mildly dilated right atrium. Interatrial Septum * Interatrial septum not well evaluated. Aortic Valve * Trileaflet aortic valve with normal function. * No aortic regurgitation. * No aortic stenosis. Mitral Valve * Normal mitral valve structure and function. * No mitral stenosis. * Trace mitral regurgitation. Tricuspid Valve * Normal tricuspid valve structure and function. * Trace tricuspid regurgitation. * Mild pulmonary hypertension. * Estimated RVSP is 39 mmHg. * Estimated RA pressure is 5 mmHg. Pulmonic Valve * Pulmonic valve not well visualized. Aorta * Normally sized aortic root. Pericardium * The pericardium appears normal. IVC * Normal IVC dimensions and inspiratory collapse. Pulmonary Artery * Pulmonary artery not well visualized. History Hypertension Diabetes Hypercholesteremia Family History of CAD Congestive Heart Failure Measurements: BP: 165/ 79 2D Normal Values RVIDd: 2.50 cm <2.7 cm IVSd: 1.40 cm 0.6 - 1.0 cm LVIDd: 5.50 cm 3.7 - 5.6 cm LVPWd: 1.40 cm 0.6 - 1.1 cm LVIDs: 3.90 cm 1.5 - 3.6 cm AO: 2.70 cm < 4.0 cm LA: 4.40 cm 2.0 - 4.0cm %FS: 29.10 cm >25 % LA volume: 39 Mitral Valve Peak E:.85 m/sec Peak A:.79 m/sec E/A Ratio:1.1 Peak E' Lat Vitor:12.1 cm/s Peak E' Med Vitor:13 cm/s E/E' Lat Ratio:7 E/E' Med Ratio:6.5 Tricuspid Valve TV Regurg Peak Grad: 34.00mmHg TV Regurg Peak Vitor: 2.92m/sec Updated by Ronnie Fuentes DO, FACLuis, MARY ELLEN, KEITH on 04/14/2016 7:00:39 PM electronically signed on 04/14/2016 7:01:44 PM with status of Final Wall Motion [place]: 1=Normal, 2=Hypokinesis, 3=Akinesis, 4=Dyskinesis, 5=Aneurysmal, 6=Hyperkinetic, X=Not Visualized (Blank)=Missing
[2016-04-14] MEDS ORDERED: Lisinopril 20 MG TABLET PO SCH (21:00)
[2016-04-15] MEDS: Ipratropium/Albuterol Neb 3 ML IH SCH ×3 (04:00→10:56)
[2016-04-15 06:54] LABS: Basophils % 0.2 %; Eosinophils # 0.2 K/mcL (0.0-0.6); Eosinophils % 2.3 %; Hematocrit 47.3 % (37.5-50.1); Immature Granulocytes % 0.5 % (0-4); Lymphocytes # 0.9 K/mcL (0.6-4.6); Lymphocytes % 9.1 %; Mean Corpuscular HGB Conc 31.7 g/dL (31.6-35.5); Mean Corpuscular Hemoglobin 27.6 pg (28.0-33.3); Mean Corpuscular Volume 87.1 fL (83.0-100.0); Monocytes % 9.9 %; Neutrophils # 7.5 K/mcL (1.6-8.9); Platelet Count 242 K/mcL (140-400); Red Blood Count 5.43 M/mcL (4.19-5.50); Red Cell Distribution Width 13.6 % (11.5-14.5)
[2016-04-15 07:11] LABS: BUN/Creatinine Ratio 25 (6-26); Blood Urea Nitrogen 18 mg/dL (8-26); Calcium 9.1 mg/dL (8.6-10.8); Carbon Dioxide 35 mEq/L (19-29); Chloride 94 mEq/L (98-109); Glucose 136 mg/dL (70-99); Osmolality,Calculated 292 (280-300); Potassium 4.3 mEq/L (3.5-4.5); Sodium 139 mEq/L (136-145); eGFR For African Americans > 60 (> 60); eGFR For Non-African Americans > 60 (> 60)
[2016-04-15] MEDS: Budesonide Neb 0.5 MG/2 ML IH SCH (07:28)
[2016-04-15] MEDS: *HR* Heparin 5,000 UNIT/ML VIAL SQ SCH (08:11)
[2016-04-15] MEDS: Insulin LISPRO 300 UNITS/3 ML VIAL SQ SCH ×2 (08:13→11:58)
[2016-04-15 11:13] VITALS: BP 149/67
--- NOTE | 2016-04-15 11:43 | Discharge Summary ---
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 Priority: Secondary Status: Chronic (7) Elevated troponin Priority: Primary Status: Acute - Discharge Medications Prescriptions: Ipratropium/Albuterol Neb [Duoneb] 3 ml IH [id number] #30 inhsol GuaiFENesin ER [Mucinex] 600 mg PO BID #20 tbbp.12hr Levofloxacin [Levaquin] 750 mg PO DAILY #5 tablet Home Medications: Amlodipine Besylate 10 mg PO QPM 04/11/16 [History] Aspirin Enteric Coated [Aspirin EC] 81 mg PO QPM 04/11/16 [History] Clopidogrel [Plavix] 75 mg PO QPM 04/11/16 [History] GlipiZIDE [Glipizide] 20 mg PO BID 04/11/16 [History] Hydrochlorothiazide 25 mg PO QPM 04/11/16 [History] Lisinopril [Zestril] 40 mg PO QPM 04/11/16 [History] Magnesium Oxide [Magnesium] 400 mg PO QPM 04/11/16 [History] Metformin HCl [Glucophage] 1,000 mg PO BID 04/11/16 [History] Simvastatin [Zocor] 10 mg PO HS 04/11/16 [History] OxyCODONE Immed Rel [Roxicodone 5 MG] 1 tab PO Q4H PRN #30 tablet 04/12/16 [Rx] Oxybutynin [Ditropan] 5 mg PO TID #30 tablet 04/12/16 [Rx] Albuterol Sulfate [Albuterol Inhaler] 1 puff IH Q4HR PRN #1 pack 04/15/16 [Rx] GuaiFENesin ER [Mucinex] 600 mg PO BID #20 tbbp.12hr 04/15/16 [Rx] Ipratropium/Albuterol Neb [Duoneb] 3 ml IH [id number] #30 inhsol 04/15/16 [Rx] Levofloxacin [Levaquin] 750 mg PO DAILY #5 tablet 04/15/16 [Rx] Allergies/Adverse Reactions: Allergies No Known Allergies Allergy (Verified 04/11/16 10:34) Procedures/tests Complete & Pending: Procedures Performed prior 72 hours Category Date Time Status CT chest wo con [CT] Routine Cat Scan 04/13/16 19:44 Completed ECG 12 lead ECG [ECG] Stat Y 04/13/16 18:19 Completed EV echocardiogram Routine Y 04/14/16 18:32 Completed Date of admission: 04/14/16 12:18 Primary care physician: PCP [place] Discharging clinician: Sneha Gaytan Anticipated date of discharge: 04/15/16 - Patient Status Disposition: Home, Self-Care Condition: Good Functional capacity at discharge: independent ambulation Overall status at discharge: patient is progressing back to baseline - Discharge Instructions Follow Up With: Mian Torrez MD [Partnered Physician] - 05/22/16 9:40 am Hamzah Lott MD [Partnered Physician] - 04/18/16 1:00 pm [place],PCP [Primary Care Provider] - 04/25/16 9:15 am - Diet and Activity Activity: wear oxygen at all times Diet: diabetic diet Interval History: Mr. Greene is a 70 year old male with past medical history of diabetes, hypertension, COPD, CAD and recent right carotid endarterectomy on 04/11/16 at our hospital. His postoperative course was complicated by hematuria and he was sent home with a Tuttle catheter. This morning, patient woke up at 7:30, was complaining of discomfort from his Tuttle catheter so he took 5 mg of oxycodone. His discomfort persisted and a family member gave him 2mg of Xanax (patient has no prescription for this). At 7:50 AM family noted the patient was acting differently, he was mumbling his words and was in bilateral arms. At the [facility] ED, patient required 6L of oxygen via NC. Urinalysis was positive for nitrates, hemoglobin, uric acid esterase and bacteria. Urine culture is pending. WBC 11. Hemoglobin 15.5. Platelets 226. Sodium 136. Potassium 4.4. chloride 96. BUN/creatinine 27. Glucose 218. Creatinine 0.88. LFTs were unremarkable except albumin 3.4. PT 13.7 INR 1.23 PTT 32.1 sedimentation rate 26. Troponin 0.22. CT of the head showed moderate chronic paranasal sinusitis. Mild to moderate arteriovascular calcification. Blood cultures are taken. He received 1 g of IV ceftriaxone and 500 mL of IV normal saline for up suspected UTI. He was transferred to our hospital for further management. On admission, patient is requiring 8 L of oxygen via high flow nasal cannula. He is alert and oriented 3. Has had already 1100 mL of clear urine without a tuttle catheter. Hospital course: Mr. Greene is a 70 year old male admitted with shortness of breath. He has a history of COPD. Patient was treated as a COPD exacerbation and was given antibiotic and nebulizer. After treatment the patient symptoms that has improved. He had no wheezing any more, in no acute respiratory distress. Oxygen saturation 90-92% in 3 L nasal cannula oxygen, which is possibly his baseline. Chest CT shows no evidence of pneumonia. Patient was discharged home with by mouth antibiotic, bronchodilator, and cough syrup. He has home oxygen already. He hospital patient has mild elevated troponin, follow the troponin doesn't trend up. EKG is reviewed and there is no ST-T change. The patient doesn't complaint of any chest pain. Consider demand ischemia. I saw and examined the patient today. He is awake alert, oriented 3. In no acute respiratory distress. Has good appetite and eats well. Vitals are stable. Oxygen saturation 92% on 3 L nasal cannula oxygen. Patient will discharge home and follow-up with PCP as outpatient. - Time Spent with Patient Total time spent providing and/or coordinating discharge services: 40 minutes Greater than 30 minutes - Constitutional Vitals: Temp Pulse Resp BP Pulse Ox 98.2 F 88 18 149/67 87 L 04/15/16 11:08 04/15/16 11:08 04/15/16 11:08 04/15/16 11:08 04/15/16 10:57 General appearance: Present: cooperative, A&O X 3, pleasant, no acute distress, answers questions appropriately - Head Head exam: Present: atraumatic, normocephalic - Eye Eye exam: Present: PERRL, conjuntiva pink, sclera anicteric Pupils: Present: PERRL - Neck Neck exam general surgery: Present: supple, trachea midline. Absent: lymphadenopathy - Respiratory Respiratory exam: Present: CTAB. Absent: accessory muscle use, rales, rhonchi, wheezes - Cardiovascular Cardiovascular exam: Present: RRR, +S1, +S2. Absent: diastolic murmur, gallop, rubs, systolic murmur - GI/Abdominal GI/Abdominal exam: Present: normal bowel sounds, soft, no peritoneal signs. Absent: distended, tenderness - Extremities Exam Extremities exam: Present: warm, radial pulses palpable and symetrical. Absent : calf tenderness, cyanotic, pedal edema - Neurological Exam Neurological exam: Present: CN II-XII intact, oriented X3, no focal deficits. Absent: pronater drift, facial droop, speech deficit - Skin Skin exam: Present: dry, intact
[2016-04-15] MEDS ORDERED: Aminoglycoside Consult 1 EACH MC ONE (13:04)
== END 2016-04-15 13:05 | disposition home or self-care (01) | DRG 189 ==
LOC: 2NNU → SUATTDRO 15:56
PROVIDERS: ADMIT Internal Medicine; ATTEND Internal Medicine

== ENCOUNTER 2021-04-11 10:04 | Observation (INO) ==
[2021-04-11] MEDS ORDERED: 0.9 % Sodium Chloride 1,000 ML IVC ONE (10:19)
[2021-04-11] MEDS ORDERED: Ondansetron 4 MG/2 ML VIAL IVP ONE (10:20)
[2021-04-11 10:45] LABS: Basophils # 0.1 K/mcL (0.0-0.2); Basophils % 0.4 %; Eosinophils # 0.1 K/mcL (0.0-0.6); Eosinophils % 0.7 %; Hematocrit 54.5 % (37.5-50.1); Hemoglobin 17.6 g/dL (12.9-16.9); Immature Granulocytes % 0.4 % (0-4); Lymphocytes # 0.9 K/mcL (0.6-4.6); Mean Corpuscular HGB Conc 32.3 g/dL (31.6-35.5); Mean Corpuscular Hemoglobin 28.5 pg (28.0-33.3); Mean Corpuscular Volume 88.3 fL (83.0-100.0); Mean Platelet Volume 9.7 fL (9.4-12.4); Monocytes % 8.1 %; Neutrophils # 10.1 K/mcL (1.6-8.9); Platelet Count 304 K/mcL (140-400); Red Blood Count 6.17 M/mcL (4.19-5.50); Red Cell Distribution Width 13.7 % (11.5-14.5); Segmented Neutrophils % 83.4 %; White Blood Count 12.2 K/mcL (4.3-11.1)
[2021-04-11 11:09] LABS: Alanine Aminotransferase 13 Units/L (7-52); Albumin 4.7 g/dL (3.5-5.7); Albumin/Globulin Ratio 1.4 (1.1-2.2); Alkaline Phosphatase 64 Units/L (34-104); Aspartate Amino Transferase 12 Units/L (13-39); Bilirubin,Total 2.1 mg/dL (0.3-1.0); Blood Urea Nitrogen 31 mg/dL (8-23); Calcium 10.3 mg/dL (8.6-10.3); Carbon Dioxide 32 mEq/L (23-29); Chloride 96 mEq/L (98-107); Globulin 3.4 g/dL (2.4-3.5); Glucose 179 mg/dL (70-105); Osmolality,Calculated 301 (280-300); Potassium 3.9 mEq/L (3.5-5.1); Sodium 140 mEq/L (136-145); Total Protein 8.1 g/dL (6.4-8.9)
[2021-04-11 11:49] LABS: Bacteria,Urine Few per hpf (None-Few); Bilirubin,Urine Small (Negative); Blood,Urine Negative (Negative); Clarity,Urine Clear (Clear); Color,Urine Yellow (Yellow); Glucose,Urine (UA) 30 mg/dL (Normal); Hyaline Casts,Urine Few per lpf (None Seen); Ketones,Urine 60 mg/dL (Negative); Leukocyte Esterase,Urine Negative (Negative); Mucus,Urine Many per lpf (None-Few); Nitrite,Urine Negative (Negative); PH,Urine 5.5 pH Units (5.0-8.0); Protein,Urine >=300 mg/dL (Neg-Trace); RBC,Urine 0-3 per hpf (0-3); Specific Gravity,Urine > 1.030 (1.010-1.025); Squamous Epithelial Cell,Urine Few per hpf (None-Few)
[2021-04-11 11:58] LABS: Influenza A PCR Negative (Negative); Influenza B PCR Negative (Negative); Resp. Syncytial Virus PCR Negative (Negative)
[2021-04-11 11:59] LABS: BUN/Creatinine Ratio 31 (6-26); eGFR For African Americans > 60 (> 60); eGFR For Non-African Americans > 60 (> 60)
[2021-04-11 12:15] LABS: SARS-CoV-2 by PCR (In House) Negative (Negative)
[2021-04-11] MEDS ORDERED: Ondansetron 4 MG/2 ML VIAL IVP PRN (12:51)
[2021-04-11] MEDS ORDERED: Naloxone 0.4 MG/ML INJ IVP PRN (12:51)
[2021-04-11] MEDS ORDERED: Acetaminophen 325 MG TABLET PO PRN (12:51)
[2021-04-11] MEDS ORDERED: Ipratropium/Albuterol Neb 3 ML IH PRN (12:54)
[2021-04-11] MEDS ORDERED: *HR* Dextrose 50 % in Water (Syg) 50 ML SYRINGE IVP PRN (12:55)
[2021-04-11] MEDS ORDERED: Dextrose Gel 15 GM/37.5 ML TUBE PO PRN ×2 (12:55)
[2021-04-11] MEDS ORDERED: D5% in Water 1,000 ML IVC PRN (12:55)
[2021-04-11] MEDS ORDERED: 0.9 % Sodium Chloride 1,000 ML IVC SCH (13:00)
[2021-04-11 14:03] LABS: VBG HCO3 32 mEq/L (21-27); VBG PCO2 55 mmHg (41-51); VBG PH 7.37 pH Units (7.32-7.42); VBG PO2 69 mmHg (25-50)
[2021-04-11 14:44] LABS: Estimated Average Glucose 163 mg/dl; Hemoglobin A1C 7.3 %
[2021-04-11] MEDS: Insulin LISPRO 300 UNITS/3 ML VIAL SUBQ SCH ×2 (14:54→18:25)
[2021-04-11] MEDS: Nicotine 21 MG PATCH.TD24 TD SCH (14:54)
[2021-04-11] MEDS: Pantoprazole 40 MG in 0.9 % Sodium Chloride Mini Bag 100 ML IVC SCH ×2 (16:45→22:38)
[2021-04-11] MEDS: lisinopriL 20 MG TABLET PO SCH (16:46)
[2021-04-11] MEDS: GlipiZIDE 5 MG TABLET PO SCH (16:46)
[2021-04-11] MEDS: Magnesium Oxide 400 MG TABLET PO SCH (16:46)
[2021-04-11] MEDS: hydroCHLOROthiazide 25 MG TABLET PO SCH (16:46)
[2021-04-11] MEDS: Aspirin Enteric Coated 81 MG Tablet PO SCH (16:47)
[2021-04-11] MEDS: Sucralfate 1 GM TABLET PO SCH ×2 (16:47→23:00)
[2021-04-11] MEDS: Budesonide/Formoterol 80/4.5 1 PUFF INH IH SCH (20:02)
[2021-04-11] MEDS: amLODIPine 5 MG TABLET PO SCH (22:38)
[2021-04-11] MEDS: *HR* Metformin 500 MG TABLET PO SCH (22:38)
[2021-04-11] MEDS: Artificial Tears SOLN 15 ML BOTTLE BOTH EYES SCH (22:46)
[2021-04-11] MEDS: Olopatadine Hcl [Pataday] 2.5 ML Drops OP SCH (22:47)
[2021-04-12] MEDS: Pantoprazole 40 MG in 0.9 % Sodium Chloride Mini Bag 100 ML IVC SCH ×4 (03:43→19:37)
[2021-04-12 04:43] LABS: Basophils % 0.5 %; Eosinophils # 0.2 K/mcL (0.0-0.6); Eosinophils % 2.7 %; Hematocrit 47.5 % (37.5-50.1); Immature Granulocytes % 0.7 % (0-4); Lymphocytes # 1.3 K/mcL (0.6-4.6); Lymphocytes % 14.6 %; Mean Corpuscular HGB Conc 30.9 g/dL (31.6-35.5); Mean Corpuscular Hemoglobin 27.7 pg (28.0-33.3); Mean Corpuscular Volume 89.6 fL (83.0-100.0); Mean Platelet Volume 9.5 fL (9.4-12.4); Monocytes # 0.8 K/mcL (0.0-1.3); Monocytes % 9.6 %; Neutrophils # 6.3 K/mcL (1.6-8.9); Platelet Count 234 K/mcL (140-400); Red Cell Distribution Width 13.6 % (11.5-14.5); Segmented Neutrophils % 71.9 %; White Blood Count 8.8 K/mcL (4.3-11.1)
[2021-04-12 04:45] LABS: Hemoglobin 14.7 g/dL (12.9-16.9)
[2021-04-12 04:52] LABS: INR 1.1; Prothrombin Time 12.8 Seconds (9.4-12.1)
[2021-04-12 05:05] LABS: % Iron Saturation 13 % (20-55); BUN/Creatinine Ratio 29 (6-26); Blood Urea Nitrogen 25 mg/dL (8-23); Calcium 8.9 mg/dL (8.6-10.3); Carbon Dioxide 32 mEq/L (23-29); Chloride 102 mEq/L (98-107); Glucose 135 mg/dL (70-105); Iron 46 mcg/dL (65-175); Magnesium 1.7 mg/dL (1.6-2.6); Osmolality,Calculated 298 (280-300); Potassium 3.6 mEq/L (3.5-5.1); Sodium 141 mEq/L (136-145); Transferrin 252 mg/dL (203-362); eGFR For African Americans > 60 (> 60); eGFR For Non-African Americans > 60 (> 60)
[2021-04-12 05:21] LABS: Ferritin 38 ng/mL (20-250)
[2021-04-12] MEDS ORDERED: Tiotropium 10 INH DOSE IH ONE (07:57)
[2021-04-12] MEDS: Budesonide/Formoterol 80/4.5 1 PUFF INH IH SCH ×2 (07:59→20:17)
[2021-04-12] MEDS: Tiotropium 10 INH DOSE IH SCH (07:59)
[2021-04-12] MEDS: Nicotine 21 MG PATCH.TD24 TD SCH (08:04)
[2021-04-12] MEDS: Sucralfate 1 GM TABLET PO SCH ×4 (08:04→21:43)
[2021-04-12] MEDS: GlipiZIDE 5 MG TABLET PO SCH (08:04)
[2021-04-12] MEDS: Cholecalciferol (D-3) 1,000 UNIT (25MCG) TABLET PO SCH (08:04)
[2021-04-12] MEDS: *HR* Metformin 500 MG TABLET PO SCH (08:04)
[2021-04-12] MEDS: Artificial Tears SOLN 15 ML BOTTLE BOTH EYES SCH ×3 (08:05→21:44)
[2021-04-12] MEDS: *HR* Enoxaparin 40 MG/0.4 ML SYRINGE SQ SCH (08:05)
[2021-04-12] MEDS: Insulin LISPRO 300 UNITS/3 ML VIAL SUBQ SCH ×3 (08:05→18:46)
[2021-04-12] MEDS: Olopatadine Hcl [Pataday] 2.5 ML Drops OP SCH ×2 (08:06→21:38)
[2021-04-12] MEDS ORDERED: *HR* Propofol 200 MG/20 ML VIAL IVP ONE (13:22)
[2021-04-12] MEDS ORDERED: Lidocaine -MPF 2% 5 ML VIAL ONE (13:22)
[2021-04-12] MEDS ORDERED: Simethicone 40 MG/0.6 ML MLS IR ONE (14:40)
[2021-04-12] MEDS: Aspirin Enteric Coated 81 MG Tablet PO SCH (17:06)
[2021-04-12] MEDS: Magnesium Oxide 400 MG TABLET PO SCH (17:06)
[2021-04-12] MEDS: hydroCHLOROthiazide 25 MG TABLET PO SCH (17:06)
[2021-04-12] MEDS: lisinopriL 20 MG TABLET PO SCH (17:07)
[2021-04-12] MEDS: amLODIPine 5 MG TABLET PO SCH (21:44)
[2021-04-13] MEDS: Pantoprazole 40 MG in 0.9 % Sodium Chloride Mini Bag 100 ML IVC SCH ×2 (00:49→06:12)
[2021-04-13] MEDS: Sucralfate 1 GM TABLET PO SCH (06:13)
[2021-04-13 06:16] LABS: Hematocrit 43.5 % (37.5-50.1); Mean Corpuscular HGB Conc 32.2 g/dL (31.6-35.5); Mean Corpuscular Hemoglobin 28.7 pg (28.0-33.3); Mean Corpuscular Volume 89.3 fL (83.0-100.0); Mean Platelet Volume 9.9 fL (9.4-12.4); Platelet Count 232 K/mcL (140-400); Red Blood Count 4.87 M/mcL (4.19-5.50); Red Cell Distribution Width 13.4 % (11.5-14.5); White Blood Count 8.2 K/mcL (4.3-11.1)
[2021-04-13 07:57] VITALS: BP 116/54; PULSE 72; TEMP 98.8
[2021-04-13] MEDS: Nicotine 21 MG PATCH.TD24 TD SCH (08:00)
[2021-04-13] MEDS: Cholecalciferol (D-3) 1,000 UNIT (25MCG) TABLET PO SCH (08:00)
[2021-04-13] MEDS: *HR* Enoxaparin 40 MG/0.4 ML SYRINGE SQ SCH (08:00)
[2021-04-13] MEDS: Insulin LISPRO 300 UNITS/3 ML VIAL SUBQ SCH (08:01)
[2021-04-13] MEDS: Tiotropium 10 INH DOSE IH SCH (08:16)
[2021-04-13] MEDS: Budesonide/Formoterol 80/4.5 1 PUFF INH IH SCH (08:16)
[2021-04-13] MEDS: Artificial Tears SOLN 15 ML BOTTLE BOTH EYES SCH (08:45)
[2021-04-13] MEDS: Olopatadine Hcl [Pataday] 2.5 ML Drops OP SCH (08:45)
[2021-04-13 09:06] LABS: BUN/Creatinine Ratio 24 (6-26); Blood Urea Nitrogen 22 mg/dL (8-23); Calcium 8.7 mg/dL (8.6-10.3); Carbon Dioxide 32 mEq/L (23-29); Chloride 98 mEq/L (98-107); Glucose 188 mg/dL (70-105); Osmolality,Calculated 294 (280-300); Potassium 3.6 mEq/L (3.5-5.1); Sodium 138 mEq/L (136-145); eGFR For African Americans > 60 (> 60); eGFR For Non-African Americans > 60 (> 60)
[2021-04-13 13:30] VITALS: O2SAT 92
== END 2021-04-13 11:49 | disposition home or self-care (01) ==
LOC: EMEROOARM 10:04 → SUATTDRO 13:54 → 3ANU 13:54 → INTOOBSV 13:54 → 3ANU 14:25
PROVIDERS: ADMIT Student in an Organized Health Care Education/Training Program; ATTEND Internal Medicine
PROC: ENDOEBX (2021-04-12 15:00)